=== PATIENT | male | born 1975 | race Caucasian/White ===

== ENCOUNTER → 2020-06-26 | Outpatient (CLI) | payer BC ==
[~2020-06-26] MED LIST: ATOR20TA66 PO
[2020-06-26 09:57] LABS: BASOPHILS # (AUTO) 0.1 X10'3 (0-0.2); BASOPHILS % (AUTO) 1.3 % (0-1); EOSINOPHILS # (AUTO) 0.2 X10'3 (0-0.9); EOSINOPHILS % (AUTO) 3.3 % (0-6); HEMATOCRIT 43.7 % (42.0-52.0); HEMOGLOBIN 14.6 g/dl (14.0-17.9); LYMPHOCYTES # (AUTO) 1.8 X10'3 (1.1-4.8); LYMPHOCYTES % (AUTO) 33.4 % (21-51); MEAN CORPUSCULAR HEMOGLOBIN 29.8 PG (27.0-31.0); MEAN CORPUSCULAR HGB CONC 33.3 g/dL (33.0-36.5); MEAN CORPUSCULAR VOLUME 89.5 FL (78-98); MEAN PLATELET VOLUME 9.9 FL (7.4-10.4); MONOCYTES # (AUTO) 0.4 X10'3 (0-0.9); MONOCYTES % (AUTO) 7.2 % (2-12); NEUTROPHILS # (AUTO) 2.9 X10'3 (1.8-7.7); NEUTROPHILS % (AUTO) 54.8 % (42-75); PLATELET COUNT 266 X10'3 (140-440); RED BLOOD COUNT 4.88 X10'6 (4.70-6.10); RED CELL DISTRIBUTION WIDTH 13.6 % (11.5-14.5); WHITE BLOOD COUNT 5.4 X10'3 (4.5-11.0)
[2020-06-26 10:23] LABS: ALANINE AMINOTRANSFERASE 86 U/L (12-78); ALBUMIN 3.8 G/DL (3.4-5.0); ALKALINE PHOSPHATASE 79 IU/L (46-116); ANION GAP 4 (8-16); ASPARTATE AMINO TRANSFERASE 30 U/L (10-37); BILIRUBIN,TOTAL 0.3 MG/DL (0.1-1.0); BLOOD UREA NITROGEN 16 MG/DL (7-18); BUN/CREATININE RATIO 13.8 (5.4-32.0); CALCIUM 9.2 MG/DL (8.5-10.1); CHLORIDE 106 MMOL/L (99-107); CHOL/HDL RATIO 5.4 (0.00-4.99); CHOLESTEROL 238 MG/DL (0-200); CREATININE 1.16 MG/DL (0.60-1.10); GLUCOSE 94 MG/DL (70-104); HDL CHOLESTEROL 44 MG/DL (35-60); LDL CHOLESTEROL 173 MG/DL (50-100); POTASSIUM 4.5 MMOL/L (3.5-5.1); SODIUM 140 MMOL/L (135-145); TOTAL CARBON DIOXIDE 30.2 MMOL/L (24-32); TOTAL PROTEIN 7.6 G/DL (6.4-8.2); TRIGLYCERIDES 122 MG/DL (20-135); eGFR 68 ML/MIN
== END | disposition home or self-care (01) ==
LOC: LAB 08:39
DX: E55.9 Vitamin D deficiency, unspecified (principal); E78.00 Pure hypercholesterolemia, unspecified; K90.49 Malabsorption due to intolerance, not elsewhere classified; R73.01 Impaired fasting glucose; R68.89 Other general symptoms and signs; R79.89 Other specified abnormal findings of blood chemistry; R94.6 Abnormal results of thyroid function studies; M54.5 Low back pain
CPT/HCPCS: 36415; 72110; 80053; 80061; 82306; 84402; 84403; 84443; 85025

== ENCOUNTER 2020-11-08 06:18 | Emergency (ER) | payer BC ==
[~2020-11-08] VITALS: Ht 182.9 cm; Wt 113.0 kg
[2020-11-08 06:29] VITALS: BP 134/89
--- NOTE | 2020-11-08 06:52 | NUR ---
pt moved from tent to ER room 1, pt has hx of Afib. Dr. Carpio wants further workup. Reported to Rosaline.
[2020-11-08] MEDS ORDERED: aspirin 81mg tab.chew PO ONE (06:55)
[2020-11-08 07:28] LABS: BASOPHILS % (AUTO) 0.7 % (0-1); EOSINOPHILS # (AUTO) 0.1 X10'3 (0-0.9); EOSINOPHILS % (AUTO) 1.4 % (0-6); HEMATOCRIT 42.8 % (42.0-52.0); HEMOGLOBIN 14.4 g/dl (14.0-17.9); LYMPHOCYTES # (AUTO) 0.9 X10'3 (1.1-4.8); LYMPHOCYTES % (AUTO) 13.9 % (21-51); MEAN CORPUSCULAR HEMOGLOBIN 29.5 PG (27.0-31.0); MEAN CORPUSCULAR HGB CONC 33.6 g/dL (33.0-36.5); MEAN CORPUSCULAR VOLUME 87.8 FL (78-98); MEAN PLATELET VOLUME 9.2 FL (7.4-10.4); MONOCYTES # (AUTO) 0.6 X10'3 (0-0.9); NEUTROPHILS # (AUTO) 4.6 X10'3 (1.8-7.7); PLATELET COUNT 231 X10'3 (140-440); RED BLOOD COUNT 4.87 X10'6 (4.70-6.10); RED CELL DISTRIBUTION WIDTH 13.6 % (11.5-14.5); WHITE BLOOD COUNT 6.2 X10'3 (4.5-11.0)
[2020-11-08 07:42] LABS: ALANINE AMINOTRANSFERASE 219 U/L (12-78); ALBUMIN 3.6 G/DL (3.4-5.0); ALBUMIN/GLOBULIN RATIO 0.8 (1.1-1.5); ALKALINE PHOSPHATASE 155 IU/L (46-116); ANION GAP 10 (8-16); ASPARTATE AMINO TRANSFERASE 95 U/L (10-37); BILIRUBIN,TOTAL 0.6 MG/DL (0.1-1.0); BLOOD UREA NITROGEN 14 MG/DL (7-18); BUN/CREATININE RATIO 11.9 (5.4-32.0); CALCIUM 8.7 MG/DL (8.5-10.1); CHLORIDE 101 MMOL/L (99-107); CREATININE 1.18 MG/DL (0.60-1.10); GLUCOSE 113 MG/DL (70-104); POTASSIUM 4.1 MMOL/L (3.5-5.1); SODIUM 135 MMOL/L (135-145); TOTAL CARBON DIOXIDE 24.3 MMOL/L (24-32); TOTAL PROTEIN 8.1 G/DL (6.4-8.2); eGFR 67 ML/MIN
[2020-11-08] MEDS ORDERED: TAM75C PO (08:30)
== END 2020-11-08 08:36 | disposition home or self-care (01) ==
LOC: ER 06:18
DX: R50.9 Fever, unspecified (principal); R79.89 Other specified abnormal findings of blood chemistry; I48.91 Unspecified atrial fibrillation; E78.00 Pure hypercholesterolemia, unspecified; Z79.899 Other long term (current) drug therapy
CPT/HCPCS: 36415; 71045; 80053; 83735; 83880; 84484; 85025; 93005; 99285

== ENCOUNTER 2020-11-11 06:03 | Inpatient (IN) | payer BC ==
[2020-11-11] VITALS (12 sets, daily range): BP systolic 114–137; BP diastolic 64–77
[~2020-11-11] VITALS: Ht 182.9 cm; Wt 113.6 kg
[~2020-11-11 06:03] MED LIST changes: +TAM75C PO
[2020-11-11] MEDS ORDERED: diltiazem 5mg/ml 5ml inj. IV ONE (06:20)
[2020-11-11 06:29] LABS: BASOPHILS # (AUTO) 0.1 X10'3 (0-0.2); BASOPHILS % (AUTO) 0.7 % (0-1); EOSINOPHILS # (AUTO) 0.5 X10'3 (0-0.9); EOSINOPHILS % (AUTO) 5.3 % (0-6); HEMOGLOBIN 14.6 g/dl (14.0-17.9); LYMPHOCYTES # (AUTO) 1.6 X10'3 (1.1-4.8); LYMPHOCYTES % (AUTO) 17.2 % (21-51); MEAN CORPUSCULAR HEMOGLOBIN 29.5 PG (27.0-31.0); MEAN CORPUSCULAR HGB CONC 33.9 g/dL (33.0-36.5); MEAN PLATELET VOLUME 9.7 FL (7.4-10.4); MONOCYTES # (AUTO) 0.7 X10'3 (0-0.9); MONOCYTES % (AUTO) 7.2 % (2-12); NEUTROPHILS # (AUTO) 6.4 X10'3 (1.8-7.7); NEUTROPHILS % (AUTO) 69.6 % (42-75); PLATELET COUNT 291 X10'3 (140-440); RED BLOOD COUNT 4.95 X10'6 (4.70-6.10); RED CELL DISTRIBUTION WIDTH 13.5 % (11.5-14.5); WHITE BLOOD COUNT 9.2 X10'3 (4.5-11.0)
[2020-11-11 06:38] LABS: ALANINE AMINOTRANSFERASE 133 U/L (12-78); ALBUMIN 3.2 G/DL (3.4-5.0); ALBUMIN/GLOBULIN RATIO 0.7 (1.1-1.5); ALKALINE PHOSPHATASE 131 IU/L (46-116); ANION GAP 9 (8-16); ASPARTATE AMINO TRANSFERASE 42 U/L (10-37); BILIRUBIN,TOTAL 0.5 MG/DL (0.1-1.0); BLOOD UREA NITROGEN 11 MG/DL (7-18); BUN/CREATININE RATIO 8.7 (5.4-32.0); CALCIUM 8.7 MG/DL (8.5-10.1); CHLORIDE 102 MMOL/L (99-107); CREATININE 1.27 MG/DL (0.60-1.10); GLUCOSE 117 MG/DL (70-104); POTASSIUM 4.2 MMOL/L (3.5-5.1); SODIUM 139 MMOL/L (135-145); TOTAL CARBON DIOXIDE 27.9 MMOL/L (24-32); TOTAL PROTEIN 7.6 G/DL (6.4-8.2); eGFR 61 ML/MIN
[2020-11-11] MEDS ORDERED: nitroGLYCERIN 0.4mg/hour patch TD ONE (06:45)
[2020-11-11] MEDS ORDERED: aspirin 81mg tab.chew PO ONE (06:45)
[2020-11-11] MEDS: diltiazem-NS 100mg/100ml 100 ML IV PRN ×2 (07:14→16:52)
[2020-11-11] MEDS ORDERED: LORazepam 2 mg/ml vial IV ONE (07:20)
[2020-11-11] MEDS ORDERED: magnesium Cl slow-release 64mg tablet PO PRN (07:45)
[2020-11-11] MEDS ORDERED: magnesium 4gm in 100ml NS 100 ML IV PRN (07:45)
[2020-11-11] MEDS ORDERED: magnesium 2GM in 50ml NS 50 ML IV PRN (07:45)
[2020-11-11] MEDS ORDERED: potassium Cl 40MEQ/1/2NS 520ml 520 ML IV PRN ×2 (07:45)
[2020-11-11] MEDS ORDERED: acetaminophen 325mg tablet PO PRN (07:45)
[2020-11-11] MEDS ORDERED: ondansetron/PF 4mg/2ml inj IV PRN (07:45)
[2020-11-11] MEDS ORDERED: potassium Cl 20 mEq SR tablet PO PRN ×2 (07:45)
[2020-11-11] MEDS: K and/or MAG REPLACEMENT MC SCH ×2 (07:56→20:00)
[2020-11-11] MEDS: heparin, porcine 5000 units/ml vial SQ SCH ×2 (08:00→20:22)
[2020-11-11] MEDS ORDERED: ATOR20TA66 PO (09:09)
[2020-11-11] MEDS ORDERED: DOXY100T2 PO (09:10)
[2020-11-11] MEDS ORDERED: OSEL75CA17 PO (09:10)
--- NOTE | 2020-11-11 12:08 | NUR ---
PAGER ID: [phone] MESSAGE: Jamin 314, Grant. Pt has a JAIMES from [employer] can I have an order for Tylenol please? Yana [id number]
[2020-11-11] MEDS: acetaminophen 325mg tablet PO PRN ×2 (12:19→20:20)
[2020-11-11] MEDS: metoprolol tartrate 25mg tablet PO SCH ×2 (14:47→20:21)
[2020-11-11 17:25] LABS: CLARITY,URINE CLEAR (Clear); COLOR,URINE YELLOW (Yellow); GLUCOSE, URINE NEGATIVE (Neg); KETONES,URINE NEGATIVE (Neg); LEUKOCYTE ESTERASE ,URINE NEGATIVE (Neg); NITRITES, URINE NEGATIVE (Neg); OCCULT BLOOD,URINE NEGATIVE (Neg); PROTEIN,URINE TRACE mg/dl (Neg)
[2020-11-11 17:28] LABS: UA COLLECTION TYPE NON-SPECIFIED
[2020-11-11 17:44] LABS: BACTERIA,URINE NONE SEEN /HPF (Neg); MUCUS STRANDS MANY /LPF (Neg); RBC,URINE NONE SEEN /HPF (0-2); SQUAMOUS EPITHELIAL CELL,UR NONE SEEN /LPF (FEW); WBC,URINE NONE SEEN /HPF (0-4)
--- NOTE | 2020-11-11 18:25 | NUR ---
Patient in room MED 314. I have received report from Nelida CLARKE and had the opportunity to ask questions and assume patient care.
--- NOTE | 2020-11-11 18:55 | NUR ---
During assessment, there was no nitro patch on the patient, and the patient states that the previous nurse removed the nitro patch.
[2020-11-11 18:57] LABS: D-DIMER 1.09 MG/L FEU (0-0.50)
[2020-11-11] MEDS ORDERED: oseltamivir phos 75mg capsule PO SCH (20:00)
--- NOTE | 2020-11-11 21:27 | NUR ---
PAGER ID: [phone] MESSAGE: Hunter Grant- 45M, on Cardizem drip at 10mcg/hr, continues to have a-fib RVR at 140s-170s, ok to increase drip at 15 mcg/hr? DDimer is also 1.09.
[2020-11-12] VITALS (16 sets, daily range): BP systolic 93–135; BP diastolic 65–86
[2020-11-12] MEDS: diltiazem-NS 100mg/100ml 100 ML IV PRN ×4 (00:43→21:59)
--- NOTE | 2020-11-12 03:00 | NUR ---
patient woke up from his sleep and stated he was feeling sweaty. patient denied any s/s of chest pain, or other cardiac symptoms. He stated he was hot. RN took temperature, and it was 98.2. RN gave patient a cool wash cloth. Patient stated he was feeling anxious because he needs to urinate and every time he urinates, his heart rate would go up to the 170s. Patient is now on 15 mcg/hr of Cardizem and heart rate is resting between 88-112. When patient urinates, his heart rate is within the 140s-150s. Patient was asked if he wanted the MD to be called for an antianxiety med, and patient refused. he wanted to try to sleep.
--- NOTE | 2020-11-12 03:41 | NUR ---
Patient states he is feeling better and states he is not sweating like he was and that the cooler room temperature is helping. RN will continue to monitor and note any changes
--- NOTE | 2020-11-12 05:30 | NUR ---
patient stated he did not sleep too well and that he was sweaty because he has anxiety after talking to son. Rn asked patient if he wanted to talk about it and patient refused.
--- NOTE | 2020-11-12 06:17 | NUR ---
Problems reprioritized. Patient report given, questions answered & plan of care reviewed with Ruth CLARKE. Patient is on cardizem drip at 15 mcg/hr.vss .
--- NOTE | 2020-11-12 06:30 | NUR ---
Patient in room MED 314. I have received report from VINCE Colmenares and had the opportunity to ask questions and assume patient care.
[2020-11-12 06:33] LABS: BASOPHILS # (AUTO) 0.1 X10'3 (0-0.2); BASOPHILS % (AUTO) 0.9 % (0-1); EOSINOPHILS # (AUTO) 0.4 X10'3 (0-0.9); EOSINOPHILS % (AUTO) 6.4 % (0-6); HEMATOCRIT 40.6 % (42.0-52.0); HEMOGLOBIN 13.6 g/dl (14.0-17.9); LYMPHOCYTES # (AUTO) 1.4 X10'3 (1.1-4.8); LYMPHOCYTES % (AUTO) 19.8 % (21-51); MEAN CORPUSCULAR HEMOGLOBIN 29.1 PG (27.0-31.0); MEAN CORPUSCULAR HGB CONC 33.4 g/dL (33.0-36.5); MEAN CORPUSCULAR VOLUME 87.1 FL (78-98); MEAN PLATELET VOLUME 9.6 FL (7.4-10.4); MONOCYTES # (AUTO) 0.5 X10'3 (0-0.9); MONOCYTES % (AUTO) 7.5 % (2-12); NEUTROPHILS # (AUTO) 4.6 X10'3 (1.8-7.7); NEUTROPHILS % (AUTO) 65.4 % (42-75); PLATELET COUNT 297 X10'3 (140-440); RED BLOOD COUNT 4.66 X10'6 (4.70-6.10); RED CELL DISTRIBUTION WIDTH 13.5 % (11.5-14.5)
[2020-11-12 06:43] LABS: ANION GAP 11 (8-16); BLOOD UREA NITROGEN 14 MG/DL (7-18); BUN/CREATININE RATIO 13.6 (5.4-32.0); CALCIUM 8.7 MG/DL (8.5-10.1); CHLORIDE 103 MMOL/L (99-107); CREATININE 1.03 MG/DL (0.60-1.10); GLUCOSE 105 MG/DL (70-104); MAGNESIUM 2.2 MG/DL (1.5-2.4); POTASSIUM 4.2 MMOL/L (3.5-5.1); SODIUM 141 MMOL/L (135-145); TOTAL CARBON DIOXIDE 26.6 MMOL/L (24-32); eGFR 78 ML/MIN
[2020-11-12] MEDS: metoprolol tartrate 25mg tablet PO SCH (07:55)
[2020-11-12] MEDS: heparin, porcine 5000 units/ml vial SQ SCH ×2 (07:56→19:57)
[2020-11-12] MEDS: K and/or MAG REPLACEMENT MC SCH ×2 (08:49→20:00)
[2020-11-12] MEDS: acetaminophen 325mg tablet PO PRN (11:13)
[2020-11-12 15:30] LABS: ALANINE AMINOTRANSFERASE 157 U/L (12-78); ALBUMIN/GLOBULIN RATIO 0.7 (1.1-1.5); ALKALINE PHOSPHATASE 117 IU/L (46-116); ASPARTATE AMINO TRANSFERASE 60 U/L (10-37); BILIRUBIN,DIRECT 0.1 MG/DL (0-0.3); BILIRUBIN,TOTAL 0.5 MG/DL (0.1-1.0); TOTAL PROTEIN 7.5 G/DL (6.4-8.2)
--- NOTE | 2020-11-12 17:59 | NUR ---
PAGER ID: [phone] MESSAGE: rm. 314. pt. Hunter Burns. pt. has been very anxious and his HR jumped to 167 while he was at rest. can we order pt. a PRN for anxiety? please advise. Ruth [phone]
[2020-11-12] MEDS ORDERED: ALPRAZolam 0.5mg tablet PO ONE (18:05)
--- NOTE | 2020-11-12 18:53 | NUR ---
Problems reprioritized. Patient report given, questions answered & plan of care reviewed with VINCE Anderson.
[2020-11-12] MEDS: sotalol 80mg tablet PO SCH (19:54)
[2020-11-12] MEDS: apixaban 5mg tablet PO SCH (19:56)
[2020-11-12] MEDS ORDERED: sotalol 80mg tablet PO SCH (20:00)
--- NOTE | 2020-11-12 22:36 | NUR ---
PAGED DR FLAHERTY: PAGER ID: [phone] MESSAGE: PT THIBOBEKATE IN 314 HR IN THE 80'S AFTER DOSE OF BETAPACE. STILL ON BIRD BETTS, PLEASE ADVISE. GILBERTO [phone]
--- NOTE | 2020-11-12 22:54 | NUR ---
NEW ORDERS TO [facility] BETTS
[2020-11-13 02:00] VITALS: BP 127/72
[2020-11-13 06:00] VITALS: BP 138/76
[2020-11-13 06:55] LABS: BASOPHILS # (AUTO) 0.1 X10'3 (0-0.2); BASOPHILS % (AUTO) 1.6 % (0-1); EOSINOPHILS # (AUTO) 0.5 X10'3 (0-0.9); EOSINOPHILS % (AUTO) 7.3 % (0-6); HEMATOCRIT 43.4 % (42.0-52.0); HEMOGLOBIN 14.7 g/dl (14.0-17.9); LYMPHOCYTES # (AUTO) 1.7 X10'3 (1.1-4.8); LYMPHOCYTES % (AUTO) 23.4 % (21-51); MEAN CORPUSCULAR HEMOGLOBIN 29.4 PG (27.0-31.0); MEAN CORPUSCULAR HGB CONC 33.8 g/dL (33.0-36.5); MEAN PLATELET VOLUME 9.2 FL (7.4-10.4); MONOCYTES # (AUTO) 0.6 X10'3 (0-0.9); MONOCYTES % (AUTO) 8.3 % (2-12); NEUTROPHILS # (AUTO) 4.3 X10'3 (1.8-7.7); NEUTROPHILS % (AUTO) 59.4 % (42-75); PLATELET COUNT 306 X10'3 (140-440); RED BLOOD COUNT 4.98 X10'6 (4.70-6.10); RED CELL DISTRIBUTION WIDTH 13.4 % (11.5-14.5); WHITE BLOOD COUNT 7.2 X10'3 (4.5-11.0)
[2020-11-13 07:05] LABS: ANION GAP 10 (8-16); BLOOD UREA NITROGEN 16 MG/DL (7-18); BUN/CREATININE RATIO 15.8 (5.4-32.0); CALCIUM 8.6 MG/DL (8.5-10.1); CHLORIDE 105 MMOL/L (99-107); CREATININE 1.01 MG/DL (0.60-1.10); GLUCOSE 102 MG/DL (70-104); MAGNESIUM 2.5 MG/DL (1.5-2.4); POTASSIUM 4.4 MMOL/L (3.5-5.1); SODIUM 139 MMOL/L (135-145); TOTAL CARBON DIOXIDE 24.4 MMOL/L (24-32); eGFR 80 ML/MIN
[2020-11-13] MEDS: sotalol 80mg tablet PO SCH (07:08)
[2020-11-13] MEDS: apixaban 5mg tablet PO SCH (07:08)
[2020-11-13] MEDS: heparin, porcine 5000 units/ml vial SQ SCH (07:08)
[2020-11-13] MEDS: K and/or MAG REPLACEMENT MC SCH (08:00)
[2020-11-13] MEDS ORDERED: APIX5TAB3 PO (09:48)
[2020-11-13 10:16] VITALS: BP 120/59
--- NOTE | 2020-11-13 11:00 | NUR ---
MD at bedside, aware of patient increased heart rate in 130's. Increased hr upon ambulation up to 140's. MD asked me to call Dr. Petty to inform him of increased HR. Called cell phone and left a message with telephone operator receptionist.
[2020-11-13] MEDS ORDERED: ALPRAZolam 0.25mg tablet PO PRN (11:30)
--- NOTE | 2020-11-13 12:16 | NUR ---
Still no call back from Dr. Petty. Gave patient PRN Xanax for increased anxiety.
--- NOTE | 2020-11-13 12:43 | NUR ---
PAGER ID: [phone] MESSAGE: [phone] [place]- Spoke with Dr. Petty, increased Sotalol to 160 mg BID, continue abby Martinez to CL[facility] pt. today. Yuli [id number]
--- NOTE | 2020-11-13 12:43 | NUR ---
Spoke with MD Petty, increase Sotalol to 160mg BID, resume Eliquis, and go to MD Petty office on Monday at anytime for an event monitor. Also, okay to DC patient today.
[2020-11-13] MEDS ORDERED: sotalol 80mg tablet PO ONE (14:20)
[2020-11-13] MEDS ORDERED: SOTA80TA73 PO (15:00)
--- NOTE | 2020-11-13 15:15 | NUR ---
Patient ready for discharge, PIV removed, cannula intact. All belongings gathered and sent home with patient. Discharge instructions reviewed and given to patient. Medications escripted to [facility] in [place].
[2020-11-13] MEDS ORDERED: sotalol 80mg tablet PO SCH (20:00)
== END 2020-11-13 15:10 | disposition home or self-care (01) | DRG 282 ==
LOC: ER 06:03 → ED HOLD 07:44 → MED 3N 11:40
PROVIDERS: ADMIT Internal Medicine; ATTEND Internal Medicine
DX: I48.91 Unspecified atrial fibrillation (principal); I21.A1 Myocardial infarction type 2; E78.00 Pure hypercholesterolemia, unspecified; R94.5 Abnormal results of liver function studies; E78.5 Hyperlipidemia, unspecified; I47.2 Ventricular tachycardia; Z86.16 Personal history of COVID-19; N18.1 Chronic kidney disease, stage 1; Z79.899 Other long term (current) drug therapy; Z82.49 Family history of ischemic heart disease and other diseases of the circulatory system; Z83.3 Family history of diabetes mellitus
CPT/HCPCS: 36415; 71045; 80048; 80053; 80076; 81001; 83735; 83880; 84439; 84443; 84484; 85025; 85379; 85610; 87081; 93005; 93306; 93308; 96365; 96375; 99285; G0378; J1644; J2060; J3490

== ENCOUNTER 2020-11-17 12:20 | Day surgery (SDC) | payer BC ==
[2020-11-17] VITALS (9 sets, daily range): BP systolic 107–135; BP diastolic 66–79
[~2020-11-17] VITALS: Ht 182.9 cm; Wt 118.9 kg
[~2020-11-17 12:20] MED LIST changes: +APIX5TAB3 PO; +SOTA80TA73 PO; -TAM75C PO
[2020-11-17] MEDS ORDERED: SOTA80TA73 PO (12:48)
[2020-11-17] MEDS ORDERED: APIX5TAB3 PO (12:48)
[2020-11-17] MEDS ORDERED: normal saline 1000ml 1,000 ML IV SCH (13:05)
[2020-11-17] MEDS ORDERED: fentaNYL/PF 50MCG/1 ML 2ML syringe IV ONE (13:05)
[2020-11-17] MEDS ORDERED: MIDAZolam 1mg/ml 10ml vial IV ONE (13:05)
== END 2020-11-17 16:35 | disposition home or self-care (01) ==
LOC: SSTAY O 12:20
PROVIDERS: ATTEND Internal Medicine Interventional Cardiology
DX: I48.91 Unspecified atrial fibrillation (principal); E78.5 Hyperlipidemia, unspecified; Z79.899 Other long term (current) drug therapy; Z20.822 Contact with and (suspected) exposure to COVID-19; Z88.1 Allergy status to other antibiotic agents; Z88.8 Allergy status to other drugs, medicaments and biological substances
CPT/HCPCS: 92960; 93005; 93312; 94799; J2250; J3010; J7030

== ENCOUNTER 2021-01-14 21:39 | Emergency (ER) | payer BC ==
[~2021-01-14] VITALS: Ht 182.9 cm; Wt 115.9 kg
[2021-01-14 22:31] LABS: BASOPHILS # (AUTO) 0.1 X10'3 (0-0.2); BASOPHILS % (AUTO) 1.1 % (0-1); EOSINOPHILS # (AUTO) 0.3 X10'3 (0-0.9); HEMATOCRIT 41.6 % (42.0-52.0); HEMOGLOBIN 13.9 g/dl (14.0-17.9); LYMPHOCYTES # (AUTO) 3.4 X10'3 (1.1-4.8); LYMPHOCYTES % (AUTO) 43.7 % (21-51); MEAN CORPUSCULAR HEMOGLOBIN 29.1 PG (27.0-31.0); MEAN CORPUSCULAR HGB CONC 33.3 g/dL (33.0-36.5); MEAN CORPUSCULAR VOLUME 87.4 FL (78-98); MEAN PLATELET VOLUME 8.4 FL (7.4-10.4); MONOCYTES # (AUTO) 0.5 X10'3 (0-0.9); MONOCYTES % (AUTO) 6.5 % (2-12); NEUTROPHILS # (AUTO) 3.5 X10'3 (1.8-7.7); NEUTROPHILS % (AUTO) 44.7 % (42-75); PLATELET COUNT 298 X10'3 (140-440); RED BLOOD COUNT 4.76 X10'6 (4.70-6.10); RED CELL DISTRIBUTION WIDTH 13.9 % (11.5-14.5); WHITE BLOOD COUNT 7.8 X10'3 (4.5-11.0)
[2021-01-14 22:40] LABS: ALANINE AMINOTRANSFERASE 96 U/L (12-78); ALBUMIN 3.7 G/DL (3.4-5.0); ALBUMIN/GLOBULIN RATIO 0.9 (1.1-1.5); ALKALINE PHOSPHATASE 98 IU/L (46-116); ANION GAP 7 (8-16); ASPARTATE AMINO TRANSFERASE 27 U/L (10-37); BILIRUBIN,TOTAL 0.2 MG/DL (0.1-1.0); BLOOD UREA NITROGEN 16 MG/DL (7-18); BUN/CREATININE RATIO 13.6 (5.4-32.0); CALCIUM 9.1 MG/DL (8.5-10.1); CHLORIDE 110 MMOL/L (99-107); CREATININE 1.18 MG/DL (0.60-1.10); GLUCOSE 114 MG/DL (70-104); POTASSIUM 4.2 MMOL/L (3.5-5.1); SODIUM 147 MMOL/L (135-145); TOTAL CARBON DIOXIDE 30.1 MMOL/L (24-32); TOTAL PROTEIN 7.6 G/DL (6.4-8.2); eGFR 67 ML/MIN
[2021-01-15] MEDS ORDERED: LIDOcaine Viscous 15ml cup MM ONE
[2021-01-15] MEDS ORDERED: mag hydrox/Alum hydrox/simeth 30ml oral suspension PO ONE
[2021-01-15] MEDS ORDERED: famotidine 20mg tablet PO ONE ×2 (01:00)
[2021-01-15 01:14] VITALS: BP 127/81
[2021-01-15] MEDS ORDERED: pantoprazole 40mg Tablet.DR PO ONE (01:15)
[2021-01-15] MEDS ORDERED: pantoprazole 40mg Tablet.DR PO SCH (07:30)
== END 2021-01-15 01:15 | disposition home or self-care (01) ==
LOC: ER 21:39
DX: R07.89 Other chest pain (principal); R06.02 Shortness of breath; R51.9 Headache, unspecified; I48.91 Unspecified atrial fibrillation; E78.00 Pure hypercholesterolemia, unspecified; Z88.1 Allergy status to other antibiotic agents; Z79.899 Other long term (current) drug therapy
CPT/HCPCS: 36415; 71045; 80053; 83880; 84484; 85025; 93005; 99285

== ENCOUNTER 2021-01-26 11:12 | Day surgery (SDC) | payer BC ==
[2021-01-21 08:37] LABS: BASOPHILS # (AUTO) 0.1 X10'3 (0-0.2); BASOPHILS % (AUTO) 1.2 % (0-1); EOSINOPHILS # (AUTO) 0.2 X10'3 (0-0.9); EOSINOPHILS % (AUTO) 3.3 % (0-6); HEMATOCRIT 43.3 % (42.0-52.0); HEMOGLOBIN 14.6 g/dl (14.0-17.9); LYMPHOCYTES # (AUTO) 2.3 X10'3 (1.1-4.8); LYMPHOCYTES % (AUTO) 37.2 % (21-51); MEAN CORPUSCULAR HGB CONC 33.7 g/dL (33.0-36.5); MEAN PLATELET VOLUME 8.8 FL (7.4-10.4); MONOCYTES # (AUTO) 0.5 X10'3 (0-0.9); MONOCYTES % (AUTO) 7.4 % (2-12); NEUTROPHILS # (AUTO) 3.1 X10'3 (1.8-7.7); NEUTROPHILS % (AUTO) 50.9 % (42-75); PLATELET COUNT 313 X10'3 (140-440); RED BLOOD COUNT 4.87 X10'6 (4.70-6.10); RED CELL DISTRIBUTION WIDTH 14.4 % (11.5-14.5); WHITE BLOOD COUNT 6.2 X10'3 (4.5-11.0)
[2021-01-21 08:40] LABS: ALBUMIN 3.7 G/DL (3.4-5.0); ANION GAP 9 (8-16); BLOOD UREA NITROGEN 19 MG/DL (7-18); BUN/CREATININE RATIO 16.5 (5.4-32.0); CALCIUM 8.9 MG/DL (8.5-10.1); CHLORIDE 105 MMOL/L (99-107); CREATININE 1.15 MG/DL (0.60-1.10); GLUCOSE 96 MG/DL (70-104); SODIUM 141 MMOL/L (135-145); TOTAL CARBON DIOXIDE 27.2 MMOL/L (24-32); eGFR 69 ML/MIN
[2021-01-21 08:45] LABS: PARTIAL THROMBOPLASTIN TIME 27 SECONDS (22-32)
[2021-01-26] VITALS (9 sets, daily range): BP systolic 115–153; BP diastolic 51–85
[~2021-01-26] VITALS: Ht 177.8 cm; Wt 120.1 kg
[2021-01-26] MEDS ORDERED: LORazepam 0.5 MG tablet PO PRN (11:30)
[2021-01-26] MEDS ORDERED: normal saline 1,000 ML IV SCH (11:30)
[2021-01-26] MEDS ORDERED: diphenhydrAMINE 25mg capsule PO PRN (11:30)
[2021-01-26] MEDS ORDERED: ATOR20TA PO (11:37)
[2021-01-26] MEDS ORDERED: TAM50T PO (11:37)
[2021-01-26] MEDS ORDERED: LIDOcaine/PRILOcaine 5gm cream TP ONE (12:00)
[2021-01-26] MEDS ORDERED: nitroGLYCERIN-Tridil 50MG/D5W 250 ML IV ONE (12:09)
[2021-01-26] MEDS ORDERED: verapamil 2.5 mg/ml inj IV ONE (12:09)
[2021-01-26] MEDS ORDERED: midazolam 1 mg/ML 2ml injection ONE ×2 (12:10→12:48)
[2021-01-26] MEDS ORDERED: LIDOcaine 1% (10mg/ml)w/preservative injection 20ml MDV ONE (12:10)
[2021-01-26] MEDS ORDERED: heparin 1,000unit/ml 10ml vial 10 ML ONE (12:10)
[2021-01-26] MEDS ORDERED: iohexol 350MG/ML 100ml bottle IV ONE (12:10)
[2021-01-26] MEDS ORDERED: fentaNYL/PF 50MCG/1 ML 2ML syringe ONE (12:10)
== END 2021-01-26 16:45 | disposition home or self-care (01) ==
LOC: SSTAY O 11:12
PROVIDERS: ATTEND Internal Medicine Interventional Cardiology
DX: R07.89 Other chest pain (principal); R06.02 Shortness of breath; I48.91 Unspecified atrial fibrillation; E78.5 Hyperlipidemia, unspecified; Z88.1 Allergy status to other antibiotic agents; Z88.8 Allergy status to other drugs, medicaments and biological substances; Z79.01 Long term (current) use of anticoagulants; Z79.899 Other long term (current) drug therapy; Z86.16 Personal history of COVID-19; Z82.49 Family history of ischemic heart disease and other diseases of the circulatory system
CPT/HCPCS: 36415; 80048; 85025; 85610; 85730; 93005; 93458; 99152; C1769; C1894; J1644; J2001; J2250; J3010; J7030; Q0163; Q9967; 99153; A4620; A6258; J3490

== ENCOUNTER 2021-07-16 07:51 | Outpatient (CLI) | payer BC ==
[~2021-07-16 07:51] MED LIST changes: -APIX5TAB3 PO; +ATOR20TA PO; -ATOR20TA66 PO; -SOTA80TA73 PO; +TAM50T PO
[2021-07-16 08:55] LABS: BASOPHILS # (AUTO) 0.1 X10'3 (0-0.2); EOSINOPHILS # (AUTO) 0.2 X10'3 (0-0.9); EOSINOPHILS % (AUTO) 2.8 % (0-6); HEMATOCRIT 44.1 % (42.0-52.0); HEMOGLOBIN 14.9 g/dl (14.0-17.9); LYMPHOCYTES # (AUTO) 2.1 X10'3 (1.1-4.8); LYMPHOCYTES % (AUTO) 35.1 % (21-51); MEAN CORPUSCULAR HEMOGLOBIN 30.1 PG (27.0-31.0); MEAN CORPUSCULAR HGB CONC 33.8 g/dL (33.0-36.5); MEAN PLATELET VOLUME 9.7 FL (7.4-10.4); MONOCYTES # (AUTO) 0.5 X10'3 (0-0.9); NEUTROPHILS # (AUTO) 3.2 X10'3 (1.8-7.7); NEUTROPHILS % (AUTO) 53.1 % (42-75); PLATELET COUNT 280 X10'3 (140-440); RED BLOOD COUNT 4.96 X10'6 (4.70-6.10); RED CELL DISTRIBUTION WIDTH 13.7 % (11.5-14.5); WHITE BLOOD COUNT 6.1 X10'3 (4.5-11.0)
[2021-07-16 08:59] LABS: ALANINE AMINOTRANSFERASE 63 U/L (12-78); ALKALINE PHOSPHATASE 108 IU/L (46-116); ANION GAP 8 (8-16); ASPARTATE AMINO TRANSFERASE 26 U/L (10-37); BILIRUBIN,TOTAL 0.4 MG/DL (0.1-1.0); BLOOD UREA NITROGEN 20 MG/DL (7-18); BUN/CREATININE RATIO 16.4 (5.4-32.0); CALCIUM 8.6 MG/DL (8.5-10.1); CHLORIDE 108 MMOL/L (99-107); CHOL/HDL RATIO 3.6 (0.00-4.99); CHOLESTEROL 153 MG/DL (0-200); CREATININE 1.22 MG/DL (0.60-1.10); GLUCOSE 94 MG/DL (70-104); HDL CHOLESTEROL 43 MG/DL (35-60); LDL CHOLESTEROL 91 MG/DL (50-100); POTASSIUM 4.8 MMOL/L (3.5-5.1); SODIUM 144 MMOL/L (135-145); TOTAL CARBON DIOXIDE 28.4 MMOL/L (24-32); TOTAL PROTEIN 7.9 G/DL (6.4-8.2); TRIGLYCERIDES 89 MG/DL (20-135); eGFR 64 ML/MIN
[2021-07-16] MEDS ORDERED: iohexol 350MG/ML 100ml bottle IV ONE (08:59)
== END 2021-07-16 23:59 | disposition home or self-care (01) ==
LOC: RAD 07:51
PROVIDERS: ATTEND Nurse Practitioner Family
DX: J98.6 Disorders of diaphragm (principal); J98.11 Atelectasis; R06.02 Shortness of breath; E78.2 Mixed hyperlipidemia; I30.0 Acute nonspecific idiopathic pericarditis; E03.9 Hypothyroidism, unspecified; R53.83 Other fatigue
CPT/HCPCS: 36415; 71046; 71275; 80053; 80061; 85025; Q9967

== ENCOUNTER → 2021-08-02 | Outpatient (CLI) | payer BC | END | disposition home or self-care (01) | LOC: CARD DIAG 09:20 | PROVIDERS: ATTEND Internal Medicine Interventional Cardiology | DX: I34.0 Nonrheumatic mitral (valve) insufficiency (principal) | CPT/HCPCS: 93306 ==

== ENCOUNTER 2022-05-27 07:03 | Outpatient (CLI) | payer BC ==
[2022-05-27 07:35] LABS: BASOPHILS # (AUTO) 0.1 X10'3 (0-0.2); BASOPHILS % (AUTO) 1.4 % (0-1); EOSINOPHILS # (AUTO) 0.2 X10'3 (0-0.9); EOSINOPHILS % (AUTO) 3.3 % (0-6); HEMATOCRIT 42.1 % (42.0-52.0); LYMPHOCYTES # (AUTO) 1.8 X10'3 (1.1-4.8); LYMPHOCYTES % (AUTO) 35.6 % (21-51); MEAN CORPUSCULAR HEMOGLOBIN 29.4 PG (27.0-31.0); MEAN CORPUSCULAR HGB CONC 33.2 g/dL (33.0-36.5); MEAN CORPUSCULAR VOLUME 88.6 FL (78-98); MEAN PLATELET VOLUME 9.2 FL (7.4-10.4); MONOCYTES # (AUTO) 0.4 X10'3 (0-0.9); MONOCYTES % (AUTO) 8.4 % (2-12); NEUTROPHILS # (AUTO) 2.6 X10'3 (1.8-7.7); NEUTROPHILS % (AUTO) 51.3 % (42-75); PLATELET COUNT 260 X10'3 (140-440); RED BLOOD COUNT 4.76 X10'6 (4.70-6.10); RED CELL DISTRIBUTION WIDTH 13.9 % (11.5-14.5)
[2022-05-27 07:50] LABS: HEMOGLOBIN A1C 5.9 % (4.5-6.2)
[2022-05-27 08:16] LABS: ALANINE AMINOTRANSFERASE 56 U/L (12-78); ALBUMIN 3.9 G/DL (3.4-5.0); ALBUMIN/GLOBULIN RATIO 1.1 (1.1-1.5); ALKALINE PHOSPHATASE 85 IU/L (46-116); ANION GAP 7 (8-16); ASPARTATE AMINO TRANSFERASE 28 U/L (10-37); BILIRUBIN,TOTAL 0.5 MG/DL (0.1-1.0); BLOOD UREA NITROGEN 19 MG/DL (7-18); BUN/CREATININE RATIO 15.8 (5.4-32.0); CALCIUM 8.8 MG/DL (8.5-10.1); CHLORIDE 108 MMOL/L (99-107); CHOL/HDL RATIO 4.8 (0.00-4.99); CHOLESTEROL 221 MG/DL (0-200); GLUCOSE 104 MG/DL (70-104); HDL CHOLESTEROL 46 MG/DL (35-60); LDL CHOLESTEROL 150 MG/DL (50-100); SODIUM 144 MMOL/L (135-145); TOTAL CARBON DIOXIDE 28.6 MMOL/L (24-32); TOTAL PROTEIN 7.6 G/DL (6.4-8.2); TRIGLYCERIDES 98 MG/DL (20-135); eGFR 65 ML/MIN
[2022-05-28 13:11] LABS: % FREE PSA 31.4 % (.); PSA, FREE 0.22 ng/mL
== END 2022-05-27 23:59 | disposition home or self-care (01) ==
LOC: LAB 07:03
PROVIDERS: ATTEND Nurse Practitioner Family
DX: Z00.01 Encounter for general adult medical examination with abnormal findings (principal); Z12.5 Encounter for screening for malignant neoplasm of prostate; R68.89 Other general symptoms and signs; K90.49 Malabsorption due to intolerance, not elsewhere classified; E03.9 Hypothyroidism, unspecified; I10 Essential (primary) hypertension; E78.00 Pure hypercholesterolemia, unspecified
CPT/HCPCS: 36415; 71046; 80053; 80061; 82043; 82306; 83036; 84153; 84154; 84443; 85025